=== PATIENT | female | born 1985 | race African-American/Black ===

== ENCOUNTER 2016-07-29 02:34 | Emergency (ER) | payer OTHER ==
--- NOTE | ~2016-07-29 | CR72 ---
[facility] A Service of [facility] RADIOLOGY TEXT RESULTS PATIENT: DEIRDRE AGUILAR LOCATION: SED : 81 UNIT #: [id number] AGE: [address]: Rene Blanco MD SEX: F ORDER DR: [id number] [address] [address] [id number] E MR#: [id number] Acc #: [id number] NAME: DEIRDRE AGUILAR. : 1985 SEX: F STUDY DATE/TIME: 07/29/2016 3:50 UNIT: SED ROOM: STUDY DESCRIPTION: CR Chest Single View Portable Attending Physician: Rene Blanco M.D. Ordering Physician: Rene Blanco M.D. MEDICAL IMAGING REPORT This report is preliminary unless electronic signature is present. EXAM Chest x-ray 07/29/2016 HISTORY 31-year-old female in the ED complaining of 2-week history of cough, congestion and chills. TECHNIQUE AP portable upright chest x-ray. FINDINGS The examination shows mild, patchy, somewhat nodular infiltrate in the central right lung near the hilum. Infectious pneumonitis is considered likely, but clinical and laboratory correlation is recommended. Radiographic followup until clear is recommended. Remaining portions of both lungs are clear. Heart size and pulmonary vascularity are normal. No visible pleural effusion. IMPRESSION Patchy, somewhat nodular infiltrate in the right midlung. Dictated by... Jarod Harrell M.D. THIS IS AN ELECTRONICALLY VERIFIED REPORT Jarod Harrell M.D. at 08/03/2016 9:15 AM SABINEW/jose carlos TD: 07/29/2016 06:11 JOB #: [id number] [facility] A Service [facility] RADIOLOGY TEXT RESULTS PATIENT: DEIRDRE AGUILAR LOCATION: SED : 83 UNIT #: [id number] AGE: [address]: Rene Blanco MD SEX: F ORDER DR: MEDICAL IMAGING REPORT Page 1 of 1
[~2016-07-29 02:34] MED LIST: AMOXICILLIN PO; ASPIRIN81 M2 PO; BLOOD PRESSURE MED PO; DICLOFENAC PO; DOXYCYCLINE PO; FLAGYL PO; FLEXERIL PO; FLONASE 0.05% N16 G1; HYCODAN PO; IBUPROFEN PO; LISINOPRIL; MACROBID100 MG PO; MEDROL PO; METRONIDAZOLE PO; NEURONTIN PO; NO MEDICATIONS; PAXIL PO; PRENATAL MULTIV1 TA1; PROCARDIA XL PO; ROBAXIN500 MG PO; VIBRAMYCIN100 M1 PO; VOLTAREN75 MG PO; ZOLOFT PO; ZYRTEC10 M2 PO; [UNRECOGNIZED DRUG - REMARK]; [UNRECOGNIZED DRUG - REMARK]
== END 2016-07-29 04:44 | disposition home or self-care (01) ==
LOC: SED 02:34
DX: J18.9 Pneumonia, unspecified organism (principal); J98.01 Acute bronchospasm; F17.200 Nicotine dependence, unspecified, uncomplicated
CPT/HCPCS: 71010; 94640; 99283

== ENCOUNTER 2016-09-12 00:54 | Emergency (ER) | payer OTHER ==
--- NOTE | ~2016-09-12 | CT16 ---
[facility] A Service of [facility] RADIOLOGY TEXT RESULTS PATIENT: DEIRDRE AGUILAR LOCATION: SED : 83 UNIT #: [id number] AGE: [address]: Ricci Olivares MD SEX: F ORDER DR: [id number] [address] [address] [id number] E MR#: [id number] Acc #: [id number] NAME: DEIRDRE AGUILAR. : 1985 SEX: F STUDY DATE/TIME: 09/12/2016 2:28 UNIT: SED ROOM: STUDY DESCRIPTION: CT Angio Chest for PE Attending Physician: Ricci Olivares M.D. Ordering Physician: Ricci Olivares M.D. MEDICAL IMAGING REPORT This report is preliminary unless electronic signature is present. EXAM CT scan of the chest with pulmonary embolus protocol. HISTORY Pain in chest increasing with expiration since 6:30 last night. The patient had a biopsy two weeks ago. TECHNIQUE The patient was given 100 mL of Isovue-370 and spiral imaging was performed through the chest. 3-D reconstructions of the pulmonary arteries were generated. This CT exam was performed with one or more of the following radiation dose reduction techniques: automatic exposure control, adjustment of mA and/or kV according to patient size, and iterative reconstruction. FINDINGS There are patchy focal densities in the right lower lobe. There are 4 or 5 present and there is 1 in the right middle lobe. It is difficult to tell if these represent nodules or infiltrates and measure up to 17 mm in diameter. There is minimal atelectasis in the lingula and in the left base. The visualized thyroid gland is normal. The aorta is normal in size. There is no mediastinal or hilar adenopathy. There is adequate opacification of the pulmonary arteries and there is no CT evidence of pulmonary embolus. The visualized portions of the upper abdomen are normal. IMPRESSION There are focal soft tissue abnormalities in the right lower lobe superior segment as well as in the right middle lobe and these measure up to 17 mm in diameter. They are nonspecific and could represent inflammatory or infectious processes. Malignancy seems less likely given the multiplicity STS. [facility] A Service of [facility] RADIOLOGY TEXT RESULTS PATIENT: DEIRDRE AGUILAR LOCATION: SED : 83 UNIT #: [id number] AGE: [address]: Ricci Olivares MD SEX: F ORDER DR: of the abnormalities. The patient states that she had a biopsy last week which presumably was a biopsy of one of these areas and clinical correlation is recommended. There is no evidence of pulmonary embolus. Dictated by... Abimael Naqvi M.D. THIS IS AN ELECTRONICALLY VERIFIED REPORT Abimael Naqvi M.D. at 09/12/2016 12:39 PM ALANA/sandra TD: 09/12/2016 09:51 JOB #: [id number] MEDICAL IMAGING REPORT Page 1 of 1
--- NOTE | ~2016-09-12 | EKG ---
PATIENT: DEIRDRE AGUILAR UNIT #: [id number] Ventricular Rate: 115 BPM Atrial Rate: 115 BPM P-R Interval: 156 ms QRS Duration: 92 ms Q-T Interval: 312 ms QTC Calculation(Bezet): 431 ms P Donnelly: 57 degrees Calculated R Donnelly: -6 degrees Calculated T Donnelly: 35 degrees Diagnosis Line: Sinus tachycardia Diagnosis Line: Septal infarct , age undetermined Diagnosis Line: Abnormal ECG Diagnosis Line: No previous ECGs available Diagnosis Line: Confirmed by THEODORE SHIPMAN MD ([id number]) on Diagnosis Line: 09/21/2016 8:27:22 AM INTERPRETING MD: UMBERTO MOHAN
[2016-09-12] MEDS ORDERED: PREDNISONE (01:06)
[2016-09-12 01:40] LABS: BASOPHIL# 0.1 X10e3 (0-0.3); BASOPHIL% 0.7 % (0-2.5); EOSINOPHIL% 0.2 % (0.0-7.0); HEMATOCRIT 37.5 % (35.0-45.0); HEMOGLOBIN 12.5 gm/dL (12.0-16.0); LYMPHOCYTE# 2.2 X10e3 (1.0-3.5); LYMPHOCYTE% 21.5 % (17.0-45.0); MEAN CELL VOLUME 84.9 FL (83-96); MEAN CORPUSCULAR HEMOGLOBIN 28.2 PG (28-34); MEAN CORPUSCULAR HGB CONC 33.2 g/dL (30-36); MEAN PLATELET VOLUME 7.8 FL (6.5-11.5); MONOCYTE# 0.7 X10e3 (0-1.0); MONOCYTE% 6.8 % (3.0-12.0); NEUTROPHIL# 7.3 X10e3 (1.5-7.1); NEUTROPHIL% 70.8 % (40-75); PLATELET COUNT 295 X10e3 (140-420); RED BLOOD COUNT 4.41 X10e (3.90-5.30); RED CELL DISTRIBUTION WIDTH 14.9 % (11.0-15.5); WHITE BLOOD COUNT 10.4 X10e3 (4.0-10.5)
[2016-09-12 01:42] LABS: DIFF IND NO
[2016-09-12 01:47] LABS: PROTHROMBIN TIME (PATIENT) 11.3 SECONDS (9.5-12.4)
[2016-09-12 01:55] LABS: ALKALINE PHOSPHATASE 59 U/L (32-92); ALT (SGPT) 20 U/L (10-40); AST (SGOT) 22 U/L (10-42); BILIRUBIN, DIRECT <0.1 mg/dL (0.0-0.2); BILIRUBIN,INDIRECT 0.4 mg/dL (0.0-0.9); BILIRUBIN,TOTAL 0.5 mg/dL (0.2-2.0); BLOOD UREA NITROGEN 17 mg/dL (9-23); BUN/CREATININE RATIO 21.25; CALCIUM SERUM 8.9 mg/dL (8.4-10.2); CARBON DIOXIDE 26 mmol/L (22-31); CHLORIDE 105 mmol/L (100-111); CREATININE SERUM 0.8 mg/dL (0.6-1.4); GLOM FILT RATE Estimated 112.4 mL/min (>60); GLUCOSE FASTING 103 mg/dL (70-110); POTASSIUM 3.3 mmol/L (3.5-5.1); PROTEIN TOTAL SERUM 7.1 g/dL (6.0-8.3); SODIUM 138 mmol/L (135-145)
[2016-09-12 01:57] LABS: POC - CKMB <1.0 ng/mL (0.0-7.9)
[2016-09-12 01:58] LABS: POC - TROPONIN <0.05 ng/mL (<=0.05)
== END 2016-09-12 03:22 | disposition home or self-care (01) ==
LOC: SED 00:54
PROVIDERS: Emergency Medicine
DX: R07.9 Chest pain, unspecified (principal); D86.9 Sarcoidosis, unspecified; I10 Essential (primary) hypertension; F17.200 Nicotine dependence, unspecified, uncomplicated
CPT/HCPCS: 36415; 71275; 80048; 80076; 82553; 82947; 84484; 84703; 85025; 85610; 85730; 93005; 99285; Q9967